=== PATIENT | male | born 2000 | race Caucasian/White ===

== ENCOUNTER 2022-07-07 15:53 | Inpatient (IN) | payer MEDICAID ==
[~2022-07-07] VITALS: Ht 167.6 cm; Wt 82.6 kg
[2022-07-07 16:23] LABS: BASOPHILS % (AUTO) 1.1 % (0.0-2.0); EOSINOPHILS % (AUTO) 1.5 % (1.0-6.0); HEMATOCRIT 46.9 % (41-53); HEMOGLOBIN 15.8 g/dL (13.5-17.5); LYMPHOCYTES # (AUTO) 1.8 K/uL (1.0-4.8); MEAN CORPUSCULAR HEMOGLOBIN 31.4 pg (26.0-34.0); MEAN CORPUSCULAR HGB CONC 33.6 G/dL (31.0-37.0); MEAN CORPUSCULAR VOLUME 94 fL (80-100); MONOCYTES # (AUTO) 0.7 K/uL (0.1-1.0); MONOCYTES % (AUTO) 10.4 % (2.0-9.0); NEUTROPHILS # (AUTO) 4.1 K/uL (1.8-7.7); PLATELET COUNT (AUTO) 256 K/uL (150-450); RED BLOOD CELL COUNT(AUTO) 5.01 MIL/uL (4.50-5.90); RED CELL DISTRIBUTION WIDTH 13.2 % (11.5-14.5)
[2022-07-07 16:33] LABS: ANION GAP 5 mmol/L (8-16); CARBON DIOXIDE 29 mmol/L (22-29); CHLORIDE 102 mmol/L (98-107); CREATININE 1.04 mg/dL (0.60-1.30); GLUCOSE,RANDOM 83 mg/dL (70-110); POTASSIUM 3.8 mmol/L (3.5-5.1); SODIUM SERUM 136 mmol/L (136-145); UREA NITROGEN, BLOOD 10 mg/dL (7-18)
[2022-07-07 16:34] LABS: CALCIUM, TOTAL 8.8 mg/dL (8.8-10.5); GLOMERULAR FILTR. RATE CALC > 60 mL/min (>60)
[2022-07-07 16:36] LABS: ALANINE AMINOTRANSFERASE 14 U/L (12-78); ALKALINE PHOSPHATASE 98 U/L (46-116); ASPARTATE AMINOTRANSFERASE 7 U/L (15-37); BILIRUBIN,TOTAL 0.4 mg/dL (0.1-1.0); TOTAL PROTEIN, SERUM 7.9 g/dL (6.4-8.2)
[2022-07-07 17:37] LABS: AMPHET/METH SCREEN,URINE POSITIVE (NEGATIVE); BARBITURATE SCREEN, URINE NEGATIVE (NEGATIVE); BENZODIAZEPINES SCREEN,URINE NEGATIVE (NEGATIVE); CANNABINOID SCREEN,URINE NEGATIVE (NEGATIVE); COCAINE SCREEN,URINE NEGATIVE (NEGATIVE); METHADONE SCREEN, URINE NEGATIVE (NEGATIVE); OPIATE SCREEN,URINE NEGATIVE (NEGATIVE); PHENCYCLIDINE SCREEN,URINE NEGATIVE (NEGATIVE)
[2022-07-07 17:48] LABS: COVID AG,FIA SOURCE NASAL SWAB
[2022-07-07] MEDS ORDERED: ZOLPIDEM TARTRATE 10 MG TABLET PO PRN (21:30)
[2022-07-07] MEDS ORDERED: LORazepam 2 MG TABLET PO PRN (21:30)
[2022-07-07] MEDS ORDERED: HALOPERIDOL 5 MG TABLET PO PRN (21:30)
[2022-07-08 17:25] VITALS: BP 115/77
[2022-07-08] MEDS: LevETIRAcetam 500 MG TABLET PO SCH (18:46)
[2022-07-09 08:00] VITALS: BP 121/75
[2022-07-09] MEDS: LevETIRAcetam 500 MG TABLET PO SCH ×2 (09:16→17:08)
[2022-07-09 16:44] VITALS: BP 112/68
[2022-07-09] MEDS ORDERED: DIVALPROEX SODIUM 500 MG DR TABLET PO SCH (17:00)
[2022-07-09] MEDS: VENLAFAXINE HCL 75 MG ER CAPSULE PO SCH (17:08)
[2022-07-09] MEDS: QUEtiapine FUMARATE 25 MG TABLET PO SCH (17:09)
[2022-07-09] MEDS ORDERED: IBUPROFEN 400 MG TABLET PO PRN (17:30)
[2022-07-09] MEDS ORDERED: CloNIDine HCL 0.1 MG TABLET PO PRN (17:30)
[2022-07-09] MEDS ORDERED: PETROLATUM,WHITE 28 GM JELLY TP PRN (17:30)
[2022-07-09] MEDS ORDERED: LOPERAMIDE HCL 2 MG CAPSULE PO PRN (17:30)
[2022-07-09] MEDS ORDERED: ALBUTEROL SULFATE HFA 90 MCG/PUFF 8 GM INHALER IH PRN (17:30)
[2022-07-09] MEDS ORDERED: MAG HYDROX/AL HYDROX/SIMETH ES 30 ML SUSPENSION UDCUP PO PRN (17:30)
[2022-07-09] MEDS ORDERED: ACETAMINOPHEN 325 MG TABLET PO PRN (17:30)
[2022-07-09] MEDS ORDERED: MAGNESIUM HYDROXIDE SUSPENSION 30 ML UDCUP PO PRN (17:30)
[2022-07-09] MEDS ORDERED: GuaiFENesin/D-METHORPHAN [SUGAR-FREE] 200-20MG/10 ML SYRUP UDCUP PO PRN (17:30)
[2022-07-09] MEDS ORDERED: NICOTINE 14 MG/24 HOUR PATCH TD PRN (17:30)
[2022-07-09] MEDS ORDERED: ONDANSETRON HCL 4 MG TABLET PO PRN (17:30)
[2022-07-09] MEDS ORDERED: DOCUSATE SODIUM 100 MG CAPSULE PO PRN (17:30)
[2022-07-09 20:14] VITALS: BP 130/74
[2022-07-09] MEDS ORDERED: TraZODone HCL 100 MG TABLET PO SCH (21:00)
[2022-07-10] MEDS: LevETIRAcetam 500 MG TABLET PO SCH ×2 (08:47→16:15)
[2022-07-10] MEDS: VENLAFAXINE HCL 75 MG ER CAPSULE PO SCH (08:47)
[2022-07-10] MEDS: QUEtiapine FUMARATE 25 MG TABLET PO SCH ×2 (08:47→16:15)
[2022-07-10] MEDS ORDERED: QUET25TA36 PO (11:55)
[2022-07-10] MEDS ORDERED: VENL-67 PO (11:55)
[2022-07-10] MEDS ORDERED: TRAZ-257 PO (11:55)
[2022-07-10] MEDS ORDERED: LevETIRAcetam 500 MG TABLET PO SCH (17:00)
== END 2022-07-10 15:00 | disposition home or self-care (01) | DRG 753 ==
LOC: EMS 15:55 → 3EI 07-08 13:47
PROVIDERS: ADMIT Psychiatry & Neurology Child & Adolescent Psychiatry; ATTEND Psychiatry & Neurology Child & Adolescent Psychiatry
DX: F31.4 Bipolar disorder, current episode depressed, severe, without psychotic features (principal); R45.851 Suicidal ideations; G40.909 Epilepsy, unspecified, not intractable, without status epilepticus; F15.10 Other stimulant abuse, uncomplicated; F31.9 Bipolar disorder, unspecified; F43.10 Post-traumatic stress disorder, unspecified; G47.00 Insomnia, unspecified; K50.90 Crohn's disease, unspecified, without complications; Z20.822 Contact with and (suspected) exposure to COVID-19; Z79.899 Other long term (current) drug therapy; Z59.01 Sheltered homelessness; Z88.1 Allergy status to other antibiotic agents; Z91.013 Allergy to seafood
CPT/HCPCS: 80053; 85025; 99285; G0480

== ENCOUNTER → 2023-09-27 | Emergency (ER) | payer MEDICAID ==
[~2023-09-27] VITALS: Ht 165.1 cm; Wt 81.8 kg
[~2023-09-27] MED LIST: ARIP15TA27 PO; LEVE250T4 PO; SERT-439 PO; TRAZ-257 PO
[2023-09-27 02:22] VITALS: TEMP 98.3
[2023-09-27 04:29] VITALS: BP 129/67; PULSE 71; RESP 16
== END | disposition still patient (30) ==
LOC: EMS 01:24
DX: S82.001D Unspecified fracture of right patella, subsequent encounter for closed fracture with routine healing (principal); J45.909 Unspecified asthma, uncomplicated; F31.9 Bipolar disorder, unspecified; F15.90 Other stimulant use, unspecified, uncomplicated; Z87.891 Personal history of nicotine dependence; Z91.013 Allergy to seafood; Z88.8 Allergy status to other drugs, medicaments and biological substances; X58.XXXD Exposure to other specified factors, subsequent encounter
CPT/HCPCS: 99283